=== PATIENT | female | born 1960 | race Caucasian/White ===

== ENCOUNTER → 2020-02-23 | Outpatient (CLI) | payer BC, MEDICARE | END | disposition home or self-care (01) | LOC: LABWHC1 11:26 | PROVIDERS: ATTEND Orthopaedic Surgery | DX: Z01.818 Encounter for other preprocedural examination (principal); Z01.812 Encounter for preprocedural laboratory examination | CPT/HCPCS: 87070 ==

== ENCOUNTER → 2020-02-25 | Outpatient (CLI) | payer BC, MEDICARE | END | disposition home or self-care (01) | LOC: LABWHC1 13:59 | PROVIDERS: ATTEND Orthopaedic Surgery | DX: Z01.810 Encounter for preprocedural cardiovascular examination (principal); R94.31 Abnormal electrocardiogram [ECG] [EKG] | CPT/HCPCS: 93005 ==

== ENCOUNTER 2020-06-29 10:34 | Day surgery (SDC) | payer BC, MEDICARE ==
[2020-06-28 11:10] VITALS: BMI 32.1
[~2020-06-29 10:34] MED LIST: LACTATED RINGERS 1,000 ML IV SCH; LIDOCAINE 1% (10MG/ML) FOR IV START INTRADERMA PRN
[2020-06-29 10:57] VITALS: TEMP 97.8
[2020-06-29] MEDS ORDERED: LACTATED RINGERS 1,000 ML IV ONE (11:00)
[2020-06-29] MEDS ORDERED: PROPOFOL 10 MG/ML 20 ML VIAL IV ONE (11:58)
--- NOTE | 2020-06-29 12:01 | P.GSHP ---
History of Present Illness H&P Date: 06/29/20 Chief Complaint: Colon cancer screening Patient here today for colonoscopy. Last colonoscopy 5 years ago. Family history of colon cancer in mother and father. No bowel complaints. Last colonoscopy normal. Patient with significant back pain. 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 endometriosis,hematuria History of Any Multi-Drug Resistant Organisms: None Reported Past Surgical History: Section, Hysterectomy, Joint Replacement, Orthopedic Surgery Additional Past Surgical History / Comment(s): scott carpel tunnel x2,cyst removed scott hands,rt knee replacement,scott feet surg Past Anesthesia/Blood Transfusion Reactions: No Reported Reaction Smoking Status: Former smoker - Past Family History Mother Family Medical History: Cancer Father Family Medical History: Cancer Medications and Allergies Home Medications Medication Instructions Recorded Confirmed Type Atorvastatin [Lipitor] 80 mg PO HS 12/06/15 06/28/20 History Cyclobenzaprine [Flexeril] 10 mg PO TID 12/06/15 06/28/20 History Levothyroxine Sodium [Synthroid] 137 mcg PO QAM 12/06/15 06/28/20 History Cephalexin [Keflex] 500 mg PO BID 06/28/20 06/28/20 History Hydrocodone/Acetaminophen [[place] 1 tab PO Q6H PRN 06/28/20 06/28/20 History 10-325] Oxymetazoline HCl [Afrin 0.05%] 2 spray EA NOSTRIL BID PRN 06/28/20 06/28/20 History Allergies Allergy/AdvReac Type Severity Reaction Status Date / Time No Known Allergies Allergy Verified 06/28/20 10:27 Surgical - Exam Vital Signs Temp Pulse Resp BP Pulse Ox 97.8 F 74 18 135/80 97 06/29/20 10:56 06/29/20 10:56 06/29/20 10:56 06/29/20 10:56 06/29/20 10:56 Physical exam: General: Well-developed, well-nourished HEENT: Normocephalic, sclerae nonicteric Abdomen: Nontender, nondistended Extremities: No edema Neuro: Alert and oriented Assessment and Plan (1) Colon cancer screening Narrative/Plan: Will proceed with colonoscopy Current Visit: Yes Status: Acute Code(s): Z12.11 - ENCOUNTER FOR SCREENING FOR MALIGNANT NEOPLASM OF COLON SNOMED Code(s): 244568552
--- NOTE | 2020-06-29 12:24 | P.PCN ---
Date of Procedure: 06/29/20 Procedure(s) Performed: PREOPERATIVE DIAGNOSIS: Colon cancer screening, family history colon cancer in mother and father POSTOPERATIVE DIAGNOSIS: Diverticulosis PROCEDURE: Colonoscopy ANESTHESIA: MAC SURGEON: Aiden Lira M.D. SPECIMENS: None ENDOSCOPIC PROCEDURE: The patient was placed on the endoscopy table in the left decubitus position. The Olympus colonoscope was inserted into the anus and passed under direct visualization to the base of the cecum. The appendiceal orifice was visualized. From that point the scope was slowly withdrawn inspecting all surfaces carefully. There were no neoplastic inflammatory or polypoid lesions throughout the cecum, ascending, transverse, descending, sigm oid and rectum. There was mild scattered diverticulosis noted. Digital rectal examination was normal. The patient was taken to the recovery room in stable condition per anesthesia guidelines. RECOMMENDATIONS: Resume diet. Follow-up colonoscopy 5 years
[2020-06-29 12:28] VITALS: RESP 16
[2020-06-29 12:45] VITALS: BP 113/79; PULSE 80
== END 2020-06-29 13:02 | disposition home or self-care (01) ==
LOC: ORWHC2ENDO 10:34
PROVIDERS: ATTEND Surgery
DX: Z12.11 Encounter for screening for malignant neoplasm of colon (principal); K57.30 Diverticulosis of large intestine without perforation or abscess without bleeding; R53.82 Chronic fatigue, unspecified; Z80.0 Family history of malignant neoplasm of digestive organs; M54.9 Dorsalgia, unspecified; E78.5 Hyperlipidemia, unspecified; M19.90 Unspecified osteoarthritis, unspecified site; M06.9 Rheumatoid arthritis, unspecified; M35.8 Other specified systemic involvement of connective tissue; E07.9 Disorder of thyroid, unspecified; I95.9 Hypotension, unspecified; M41.9 Scoliosis, unspecified; N80.9 Endometriosis, unspecified; Z87.42 Personal history of other diseases of the female genital tract; Z98.890 Other specified postprocedural states; Z90.710 Acquired absence of both cervix and uterus; Z96.651 Presence of right artificial knee joint; Z86.69 Personal history of other diseases of the nervous system and sense organs; Z87.891 Personal history of nicotine dependence; Z79.899 Other long term (current) drug therapy; Z79.890 Hormone replacement therapy; Z79.891 Long term (current) use of opiate analgesic
CPT/HCPCS: 82607; 82306; G0105; J2704

== ENCOUNTER → 2021-03-16 | Outpatient (CLI) | payer MEDICARE ==
[2021-03-16 13:52] LABS: Creatine Kinase 59 U/L (30-135)
[2021-03-16 22:40] LABS: Anti-Smith Ab Interp NEGATIVE (NEGATIVE)
[2021-03-17 02:23] LABS: Rheumatoid Factor, Qnt 6 IU/mL (0-15)
--- NOTE | 2021-03-29 19:06 | EM ---
EVENT MONITOR The patient was monitored between the and the March 2021. The rhythm strip reveals sinus mechanism with no evidence of ventricular tachycardia or atrial fibrillation. MMODL / IJN: [id number] /
== END | disposition home or self-care (01) ==
LOC: RADECHMAIN 11:51
PROVIDERS: ATTEND Psychiatry & Neurology Neurology
DX: R55 Syncope and collapse (principal); M25.50 Pain in unspecified joint
CPT/HCPCS: 82550; 85652; 86235; 86431; 93270

== ENCOUNTER 2024-07-15 02:40 | Emergency (ER) | payer MEDICARE ==
--- NOTE | 2024-07-15 03:20 | ED ---
General Adult HPI - General Chief complaint: Urogenital Stated complaint: Back pain Time Seen by Provider: 07/15/24 02:51 Source: patient Mode of arrival: wheelchair Limitations: no limitations - History of Present Illness Initial comments: Dictation was produced using [employer] dictation software. please excuse any grammatical, word or spelling errors. Chief Complaint: 63-year-old female with history of kidney stones presents with right flank pain History of Present Illness: Patient 63-year-old female she has multiple comorbidities. States she has a history of kidney stones. States that she always has blood in her urine. States that the pain is in her right flank. Nonradiating. She states that her symptoms feel like her usual kidney stone p ain. Denies any fever, chills or night sweats. Symptoms not exacerbated with standing or twisting. The ROS documented in this emergency department record has been reviewed and confirmed by me. Those systems with pertinent positive or negative responses have been documented in the HPI. All other systems are other negative and/or noncontributory. - Related Data Home Medications Medication Instructions Recorded Confirmed Atorvastatin [Lipitor] 80 mg PO HS 12/06/15 06/28/20 Cyclobenzaprine [Flexeril] 10 mg PO TID 12/06/15 06/28/20 Levothyroxine Sodium [Synthroid] 137 mcg PO QAM 12/06/15 06/28/20 Hydrocodone/Acetaminophen [[place] 1 tab PO Q6H PRN 06/28/20 06/28/20 10-325] Oxymetazoline HCl [Afrin 0.05%] 2 spray EA NOSTRIL BID PRN 06/28/20 06/28/20 cephALEXin [Keflex] 500 mg PO BID 06/28/20 06/28/20 Allergies Allergy/AdvReac Type Severity Reaction Status Date / Time No Known Allergies Allergy Verified 07/15/24 02:45 Review of Systems ROS Statement: Those systems with pertinent positive or pertinent negative responses have been documented in the HPI. ROS Other: All systems not noted in ROS Statement are negative. 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 endometriosis,hematuria History of Any Multi-Drug Resistant Organisms: None Reported Past Surgical History: Section, Hysterectomy, Joint Replacement, Orthopedic Surgery Additional Past Surgical History / Comment(s): scott carpel tunnel x2,cyst removed scott hands,rt knee replacement,scott feet surg Past Anesthesia/Blood Transfusion Reactions: No Reported Reaction Past Psychological History: Depression Smoking Status: Former smoker - Past Family History Mother Family Medical History: Cancer Father Family Medical History: Cancer General Exam - General Exam Comments Initial Comments: PHYSICAL EXAM: General Impression: Alert and oriented x3, distress secondary pain HEENT: Normocephalic atraumatic, extra-ocular movements intact, pupils equal and reactive to light bilaterally, mucous membranes moist. Cardiovascular: Heart regular rate and rhythm Chest: Able to complete full sentences, no retractions, no tachypnea Abdomen: abdomen soft, non-tender, non-distended, no organomegaly Musculoskeletal: Pulses present and equal in all extremities, no peripheral edema no pain with CVA thump Motor: no focal deficits noted Neurological: CN II-XII grossly intact, no focal motor or sensory deficits noted Skin: Intact with no visualized rashes Psych: Normal affect and mood Limitations: no limitations Course Vital Signs 07/15/24 02:45 Temperature 98.0 F Pulse Rate 106 H Respiratory 18 Rate Blood Pressure 161/98 O2 Sat by Pulse 96 Oximetry Medical Decision Making - Medical Decision Making Was pt. sent in by a medical professional or institution ([facility] Conteh, COMMERCIAL SALES MANAGER, urgent care, hospital, or custodial...) When possible be specific @ -No Did you speak to anyone other than the patient for history (EMS, parent, family, police, friend...)? What history was obtained from this source @ -No Did you review nursing and triage notes (agree or disagree)? Why? @ -I reviewed and agree with nursing and triage notes Were old charts reviewed (outside hosp., previous admission, EMS record, old EKG, old radiological studies, urgent care reports/EKG's, custodial records)? Report findings @ -No old charts were reviewed Differential Diagnosis (chest pain, altered mental status, abdominal pain women, abdominal pain men, vaginal bleeding, musculoskeletal, weakness, fever, dyspnea, syncope, headache, dizziness, GI bleed, back pain, seizure, CVA, palpatations, mental health)? @ -Kidney stone, retroperitoneal hematoma, back strain EKG interpreted by me (3pts min.). @ -None done X-rays interpreted by me (1pt min.). @ -None done CT interpreted by me (1pt min.). @ -CT of the abdomen pelvis without contrast shows no acute processes U/S interpreted by me (1pt. min.). @ -None done What testing was considered but not performed or refused? (CT, X-rays, U/S, labs)? Why? @ -None What meds were considered but not given or refused? Why? @ -None Was smoking cessation discussed for >3mins.? @ -No Were there social determinants of health that impacted care today? How? (Homelessness, low income, unemployed, alcoholism, drug addiction, transportation, low edu. Level, literacy, decrease access to med. care, senior care, rehab)? @ -No Was there de-escalation of care discussed even if they declined (Discuss DNR or withdrawal of care, Hospice)? DNR status @ -No What co-morbidities impacted this encounter? (DM, HTN, Smoking, COPD, CAD, Cancer, CVA, ARF, Chemo, Hep., AIDS, mental health diagnosis, sleep apnea, morbid obesity)? @ -History of nephrolithiasis Was patient admitted / discharged? Hospital course, mention meds given and route, prescriptions, significant lab abnormalities, going to OR and other pertinent info. @ -63-year-old female presents with right-sided flank pain. Vital signs upon arrival are within acceptable limits. Patient appears distressed at the bedside . Laboratory evaluation obtained. Labs are unremarkable. Urinalysis is negative. Minimal blood in the urine. CT shows no acute processes. Patient given analgesic medications reevaluated bedside 6:25 AM found to be stable to condition. Patient notified of her benign labs and imaging studies. She states she feels better and like to be discharged. Advise follow-up with primary care doctor. She states she has pain medications at home that she can take Did you discuss the management of the patient with other professionals (professionals i.e. , PA, COMMERCIAL SALES MANAGER, lab, RT, psych nurse, social work case manager, leaf tinner, teacher, eeo officer, director case management)? Give summary @ -No Was critical care preformed (if so, how long)? @ -No Undiagnosed new problem with uncertain prognosis? @ -No Drug Therapy requiring intensive monitoring for toxicity (Heparin, Nitro, Insulin, Cardizem)? @ -No Were any procedures done? @ -No Diagnosis/symptom? Acute, or Chronic, or Acute on Chronic? Uncomplicated (without systemic symptoms) or Complicated (systemic symptoms)? @ -Flank pain Side effects of treatment? @ -No Exacerbation, Progression, or Severe Exacerbation? @ -No Poses a threat to life or bodily function? How? (Chest pain, [place], [place], pneumonia, PE, COPD, DKA, ARF, appy, cholecystitis, CVA, Diverticulitis, Homicidal, Suicidal, threat to staff... and all critical care pts) @ -No - Lab Data Result diagrams: 07/15/24 03:28 07/15/24 03:28 Lab Results 07/15/24 07/15/24 07/15/24 Range/Units 03:28 03:28 04:55 WBC 7.3 (3.8-10.6) k/uL RBC 4.46 (3.80-5.40) m/uL Hgb 12.9 (11.4-16.0) gm/dL Hct 40.0 (34.0-46.0) % MCV 89.6 (80.0-100.0) fL MCH 28.9 (25.0-35.0) pg MCHC 32.3 (31.0-37.0) g/dL RDW 12.7 (11.5-15.5) % Plt Count 236 (150-450) k/uL MPV 7.5 Neutrophils % 72 % Lymphocytes % 19 % Monocytes % 5 % Eosinophils % 2 % Basophils % 0 % Neutrophils # 5.3 (1.3-7.7) k/uL Lymphocytes # 1.4 (1.0-4.8) k/uL Monocytes # 0.4 (0-1.0) k/uL Eosinophils # 0.2 (0-0.7) k/uL Basophils # 0.0 (0-0.2) k/uL Sodium 141 (137-145) mmol/L Potassium 4.5 (3.5-5.1) mmol/L Chloride 106 (98-107) mmol/L Carbon Dioxide 24 (22-30) mmol/L Anion Gap 11 mmol/L BUN 22 H (7-17) mg/dL Creatinine 1.04 (0.52-1.04) mg/dL Est GFR (CKD-EPI)AfAm 66 (>60 ml/min/1.73 sqM) Est GFR (CKD-EPI)NonAf 57 (>60 ml/min/1.73 sqM) Glucose 111 H (74-99) mg/dL Calcium 9.8 (8.4-10.2) mg/dL Total Bilirubin 0.5 (0.2-1.3) mg/dL AST 29 (14-36) U/L ALT 21 (4-34) U/L Alkaline Phosphatase 95 (38-126) U/L Total Protein 7.3 (6.3-8.2) g/dL Albumin 4.6 (3.5-5.0) g/dL Urine Color Light Yellow Urine Appearance Clear (Clear) Urine pH 7.0 (5.0-8.0) Ur Specific [place] 1.017 (1.001-1.035) Urine Protein Negative (Negative) Urine Glucose (UA) Negative (Negative) Urine Ketones Negative (Negative) Urine Blood Small H (Negative) Urine Nitrite Negative (Negative) Urine Bilirubin Negative (Negative) Urine Urobilinogen <2.0 (<2.0) mg/dL Ur Leukocyte Esterase Negative (Negative) Urine RBC 6 H (0-5) /hpf Urine WBC 2 (0-5) /hpf Ur Squamous Epith Cells <1 (0-4) /hpf Hyaline Casts 1 (0-2) /lpf Urine Mucus Rare H (None) /hpf Disposition Clinical Impression: Flank pain Disposition: HOME SELF-CARE Condition: Good Instructions (If sedation given, give patient instructions): Flank Pain (ED) Is patient prescribed a controlled substance at d/c from ED?: No Referrals: Alli Mejia MD [Primary Care Provider] - 1-2 days Time of Disposition: 06:26
[2024-07-15 03:49] LABS: Basophils % (A) 0 %; Eosinophils # (A) 0.2 k/uL (0-0.7); Eosinophils % (A) 2 %; HGB 12.9 gm/dL (11.4-16.0); Lymphocytes # (A) 1.4 k/uL (1.0-4.8); Lymphocytes % (A) 19 %; MCH 28.9 pg (25.0-35.0); MCHC 32.3 g/dL (31.0-37.0); MCV 89.6 fL (80.0-100.0); Mean Platelet Volume 7.5; Monocytes # (A) 0.4 k/uL (0-1.0); Monocytes % (A) 5 %; Neutrophils # (A) 5.3 k/uL (1.3-7.7); Neutrophils % (A) 72 %; Platelet Count 236 k/uL (150-450); RBC 4.46 m/uL (3.80-5.40); RDW 12.7 % (11.5-15.5); WBC 7.3 k/uL (3.8-10.6)
[2024-07-15] MEDS: MORPHINE SULFATE 4 MG/ML SYRINGE IVP PRN (03:56)
[2024-07-15] MEDS: SODIUM CHLORIDE 0.9% 1,000 ML IV STA (03:56)
[2024-07-15] MEDS: KETOROLAC 15 MG/ML 1 ML VIAL IVP STA (03:56)
[2024-07-15 03:58] LABS: ALT 21 U/L (4-34); AST 29 U/L (14-36); African American GFR (CKD) 66 (>60 ml/min/1.73 sqM); Albumin 4.6 g/dL (3.5-5.0); Alkaline Phosphatase 95 U/L (38-126); Anion Gap 11 mmol/L; Blood Urea Nitrogen 22 mg/dL (7-17); Calcium 9.8 mg/dL (8.4-10.2); Carbon Dioxide 24 mmol/L (22-30); Chloride 106 mmol/L (98-107); Glucose 111 mg/dL (74-99); Non-African American GFR(CKD) 57 (>60 ml/min/1.73 sqM); Potassium 4.5 mmol/L (3.5-5.1); Sodium 141 mmol/L (137-145); Total Bilirubin 0.5 mg/dL (0.2-1.3); Total Protein 7.3 g/dL (6.3-8.2)
--- NOTE | 2024-07-15 05:20 | CT ---
EXAM: CT Abdomen and Pelvis Without Intravenous Contrast CLINICAL HISTORY: ITS.REASON CT Reason: right flank pain TECHNIQUE: Axial computed tomography images of the abdomen and pelvis without intravenous contrast. CTDI is 9.4 mGy and DLP is 530.6 mGy-cm. This CT exam was performed using one or more of the following dose reduction techniques: automated exposure control, adjustment of the mA and/or kV according to patient size, and/or use of iterative reconstruction technique. COMPARISON: No relevant prior studies available. FINDINGS: Limitations: Limited evaluation in the absence of contrast. Lung bases: Unremarkable. No mass. No consolidation. ABDOMEN: Liver: Unremarkable. Gallbladder and bile ducts: Unremarkable. No calcified stones. No ductal dilation. Pancreas: Unremarkable. No ductal dilation. Spleen: Unremarkable. No splenomegaly. Adrenals: Unremarkable. No mass. Kidneys and ureters: No evidence of radiopaque renal calculi or signs of collecting system dilatation. Stomach and bowel: No evidence of bowel obstruction. No mucosal thickening. PELVIS: Appendix: Normal appendix. Bladder: Unremarkable. No stones. Reproductive: Unremarkable as visualized. ABDOMEN and PELVIS: Intraperitoneal space: Unremarkable. No free air. No significant fluid collection. Bones/joints: Degenerative changes in the spine. No acute fracture. No dislocation. Soft tissues: Umbilical hernia containing fat. Vasculature: Atherosclerotic disease. No abdominal aortic aneurysm. Lymph nodes: Unremarkable. No enlarged lymph nodes. Other findings: Hysterotomy changes. IMPRESSION: 1. Limited evaluation in the absence of contrast. 2. No evidence of radiopaque renal calculi or signs of collecting system dilatation. 3. Normal appendix. 4. No evidence of bowel obstruction. 5. No other acute findings.
[2024-07-15 06:20] LABS: Appearance,Urine Clear (Clear); Bilirubin,Urine Negative (Negative); Blood,Urine Small (Negative); Color,Urine Light Yellow; Glucose,Urine (UA) Negative (Negative); Hyaline Casts,Urine 1 /lpf (0-2); Ketones,Urine Negative (Negative); Leukocyte Esterase,Urine Negative (Negative); Mucus,Urine Rare /hpf; Nitrite,Urine Negative (Negative); Protein,Urine Negative (Negative); RBC,Urine 6 /hpf (0-5); Specific Gravity,Urine 1.017 (1.001-1.035); Squamous Epithelial Cell,Urine <1 /hpf (0-4); Urobilinogen,Urine <2.0 mg/dL (<2.0); WBC,Urine 2 /hpf (0-5)
[2024-07-15 06:33] VITALS: BP 144/83; PULSE 86; RESP 17; TEMP 97.7
== END 2024-07-15 06:33 | disposition home or self-care (01) ==
LOC: EC 02:40
DX: R10.31 Right lower quadrant pain (principal); Z87.891 Personal history of nicotine dependence; Z87.442 Personal history of urinary calculi
CPT/HCPCS: 36415; 80053; 85025; 81001; 74176; 99284; 96374; 96375; 96361; J2270; J1885

== ENCOUNTER → 2024-09-29 | Outpatient (CLI) | payer MEDICARE ==
--- NOTE | 2024-09-29 14:09 | XR ---
EXAMINATION TYPE: XR cervical spine limited DATE OF EXAM: 09/29/2024 2:02 PM COMPARISON: None CLINICAL INDICATION: Female, 64 years old with history of M54.2 CERVICALGIA; PHH, pain TECHNIQUE: XR cervical spine limited, (1-2) views of the cervical spine FINDINGS: The osseous structures show normal alignment without evidence of an acute fracture. There are osteoph ytes noted at the anterior aspects of the vertebral bodies at C5-C6 and C7. The intervertebral disk s paces are narrowed at multiple levels Pedicles are intact. Soft tissues are within normal limits. Th e odontoid appears intact. IMPRESSION: 1. No fracture or dislocation. 2. Moderate degenerative disc disease changes of the cervical spine. [facility], , 09/29/2024 2:06 PM
== END | disposition home or self-care (01) ==
LOC: RADXRMAIN 13:49
PROVIDERS: ATTEND Family Medicine
DX: M50.30 Other cervical disc degeneration, unspecified cervical region (principal)
CPT/HCPCS: 72040